=== PATIENT | male | born 2000 | race Caucasian/White ===

== ENCOUNTER 2021-06-14 10:57 | Emergency (ER) | payer OTHER ==
[2021-06-14 11:23] VITALS: BP 117/71; PULSE 61; TEMP 97.3; BMI 21.2
[2021-06-14] MEDS ORDERED: KETOROLAC TROMETHAMINE 30 MG/1 ML VIAL IM ONE (11:49)
== END 2021-06-14 12:08 | disposition home or self-care (01) ==
LOC: JERFT 10:57
PROC: 3E023GC Introduction of Other Therapeutic Substance into Muscle, Percutaneous Approach (ICD-10-PCS; principal; 2021-06-14)
DX: M54.50 Low back pain, unspecified (principal)
CPT/HCPCS: 99284-25